=== PATIENT | male | born 2000 | race Caucasian/White ===

== ENCOUNTER 2021-06-05 15:36 | Inpatient (IN) | payer BC, OTHER ==
[2021-06-05] MEDS ORDERED: SODIUM CHLORIDE 0.9% 500 ML INFUS.BAG IV ONE ×3 (16:23→18:47)
[2021-06-05] MEDS ORDERED: ONDANSETRON 4 MG/2 ML VIAL IVPUSH ONE (16:28)
[2021-06-05] MEDS ORDERED: ACETAMINOPHEN 1000 MG/100 ML BAG IVPB ONE (16:28)
[2021-06-05] MEDS ORDERED: morphine CARPU-JECT 4 MG/1 ML DISP.SYRIN IVPUSH ONE (16:28)
[2021-06-05] MEDS ORDERED: FAMOTIDINE 20 MG/50 ML IVPB 20 MG/50 ML MG IVPB ONE ×2 (16:30→17:18)
[2021-06-05] MEDS ORDERED: morphine SULFATE 4 MG/ML VIAL ONE (16:36)
[2021-06-05] MEDS ORDERED: ONDANSETRON 4 MG/2 ML VIAL ONE (16:36)
[2021-06-05] MEDS ORDERED: ACETAMINOPHEN INJECTION 100 ML IVPB ONE (16:36)
[2021-06-05 17:13] LABS: ALBUMIN 3.3 g/dl (3.4-5.0); BILIRUBIN,TOTAL 3.3 mg/dl (0.2-1); CALCIUM 7.7 mg/dl (8.5-10); CREATININE 0.4 mg/dl (0.55-1.3); MAGNESIUM 2.1 mg/dL (1.8-2.4); TOT PROT 5.1 g/dl (6.4-8.2)
[2021-06-05] MEDS ORDERED: diazePAM CARPU-JECT 10 MG/2 ML DISP.SYRIN ONE ×3 (18:32→21:54)
[2021-06-05] MEDS ORDERED: FOLIC ACID INJECTION - 1 MG, THIAMINE HCL 100 MG, MULTIVIT INJECTION ADULT 10 ML in SOD... IVPB ONE (18:37)
[2021-06-05 18:39] LABS: INR 1.18 (0.83-1.09); PROTHROMBIN TIME (PATIENT) 13.6 SEC (9.7-13.0)
[2021-06-05] MEDS ORDERED: THIAMINE HCL 200 MG/2 ML VIAL ONE (18:46)
[2021-06-05] MEDS ORDERED: FOLIC ACID 5 MG/1 ML ONE (18:48)
[2021-06-05] MEDS ORDERED: LORazepam 2 MG/ML SDV VIAL IVPUSH ONE (18:48)
[2021-06-05] MEDS ORDERED: diazePAM CARPU-JECT 10 MG/2 ML DISP.SYRIN IVPUSH ONE ×3 (18:48→21:52)
[2021-06-05 18:49] LABS: BASO % 0.5 % (0-2.0); EOS % 0.1 % (0-4.5); HEMOGLOBIN 15.4 GM/dL (11.7-16.9); LYMPH % 20.1 % (8-40); MCH 38.3 pg (25.7-33.7); MCHC 37.6 g/dl (32.0-35.9); MEAN PLT VOLUME 10.2 fl (7.5-11.1); NEUT % 73.3 % (42.8-82.8); PLATELET COUNT 141 10^3/uL (134-434); RBC 4.02 M/mm3 (4.00-5.60); RDW 13.4 % (11.9-15.9); WHITE BLOOD COUNT 10.1 K/mm3 (4.0-10.0)
[2021-06-05 19:27] LABS: ANISOCYTOSIS 1+; MACROCYTOSIS 0; TOXIC GRANULATION 1+
[2021-06-05 19:30] LABS: LACTIC ACID 3.4 mmol/L (0.4-2.0)
[2021-06-05] MEDS ORDERED: KCL 10 MEQ IVPB 10 MEQ/100 ML INFUS.BAG IVPB SCH (19:30)
[2021-06-05] MEDS ORDERED: KCL 10 MEQ IVPB 10 MEQ/100 ML INFUS.BAG IVPB ONE (19:51)
[2021-06-05 20:43] LABS: CHOLESTEROL 596 mg/dl (50-200)
[2021-06-05 20:54] LABS: VENOUS BASE EXCESS -9.1 mmol/L (-2-2); VENOUS O2 SATURATION 89.2 % (70-80); VENOUS PCO2 33.1 mmHg (38-52); VENOUS PH 7.305 (7.310-7.410)
[2021-06-05 21:21] LABS: COCAINE, UR POSITIVE (NEGATIVE); METHADONE, UR NEGATIVE (NEGATIVE); OPIATES, URI POSITIVE (NEGATIVE); PHENCYCLIDINE,URINE NEGATIVE (NEGATIVE); URINE AMPHETAMINES NEGATIVE (NEGATIVE); URINE BARBITURATES NEGATIVE (NEGATIVE); URINE BENZODIAZEPINES NEGATIVE (NEGATIVE)
[2021-06-05 21:37] LABS: LDL CHOLESTEROL (ONLY DFH) -470 mg/dl (5-100)
[2021-06-05 21:38] LABS: HDL CHOLESTEROL 10 mg/dl (40-60)
[2021-06-05 21:39] LABS: TRIGLYCERIDES 5280 mg/dl (0-150)
[2021-06-05] MEDS ORDERED: INSULIN DRIP - PLEASE ORDER UNDER SETS NR ONE (23:11)
[2021-06-05] MEDS ORDERED: DEXTROSE 5%-NORMAL SALINE 1,000 ML IV SCH (23:15)
[2021-06-06 00:17] LABS: LACTIC ACID 3.1 mmol/L (0.4-2.0)
[2021-06-06] MEDS ORDERED: LIDOCAINE 5% TOPICAL PATCH TP ONE ×2 (01:03→08:28)
[2021-06-06 01:22] VITALS: BMI 27.8
[2021-06-06] MEDS: D5-NS + 20 MEQ KCL - 20 MEQ/1,000 ML INFUS.BAG IV SCH ×2 (01:36→07:51)
[2021-06-06 01:43] LABS: CHLORIDE 96 mmol/L (98-107); SODIUM 130 mmol/L (136-145)
[2021-06-06 01:49] LABS: ANION GAP 12 MMOL/L (8-16); CO2 22 mmol/L (21-32); CREATININE 0.8 mg/dL (0.55-1.3); GLUCOSE,RANDOM 183 mg/dL (74-106)
[2021-06-06 01:50] LABS: BLOOD UREA NITROGEN 9.7 mg/dL (7-18); CALCIUM 5.6 mg/dL (8.5-10.1)
[2021-06-06] MEDS ORDERED: INSULIN REGULAR HUMAN 100 UNITS/ML *VIAL* (FOR IVP) IVPUSH ONE (01:56)
[2021-06-06] MEDS ORDERED: DEXTROSE 50%-WATER - 25 GM/50 ML VIAL IVPUSH PRN ×2 (01:56→14:15)
[2021-06-06] MEDS ORDERED: INSULIN REGULAR 100 UNITS in SODIUM CHLORIDE 99 ML IVPB SCH ×2 (02:00→15:00)
[2021-06-06] MEDS: MUPIROCIN 2% TOPICAL OINTMENT FOR DECOLONIZATION NS SCH ×3 (02:40→21:01)
[2021-06-06] MEDS ORDERED: oxyCODONE HCL 5 MG TABLET PO ONE ×2 (02:52→22:33)
[2021-06-06] MEDS ORDERED: DEXTROSE 50%-WATER 25 GM/50 ML DISP.SYRIN ONE ×5 (04:10→14:16)
[2021-06-06] MEDS: DEXTROSE 50%-WATER - 25 GM/50 ML VIAL IVPUSH PRN ×2 (05:19→06:17)
[2021-06-06] MEDS ORDERED: LORazepam 2 MG/ML SDV VIAL IVPUSH ONE (06:13)
[2021-06-06 07:05] LABS: BASO % 0.4 % (0-2.0); EOS % 0.1 % (0-4.5); HEMATOCRIT 36.2 % (35.4-49); HEMOGLOBIN 12.5 GM/dL (11.7-16.9); LYMPH % 17.5 % (8-40); MCH 35.4 pg (25.7-33.7); MCHC 34.5 g/dl (32.0-35.9); MEAN CELL VOLUME 102.8 fl (80-96); MEAN PLT VOLUME 9.6 fl (7.5-11.1); MONO % 5.7 % (3.8-10.2); NEUT % 76.3 % (42.8-82.8); PLATELET COUNT 110 10^3/uL (134-434); RBC 3.52 M/mm3 (4.00-5.60); RDW 13.2 % (11.9-15.9); WHITE BLOOD COUNT 11.5 K/mm3 (4.0-10.0)
[2021-06-06 07:24] LABS: CHLORIDE 100 mmol/L (98-107); SODIUM 133 mmol/L (136-145)
[2021-06-06 07:26] LABS: ALBUMIN 2.3 g/dl (3.4-5.0)
[2021-06-06 07:27] LABS: ANION GAP 12 MMOL/L (8-16); CO2 21 mmol/L (21-32); GLUCOSE,RANDOM 94 mg/dL (74-106); MAGNESIUM 1.7 mg/dL (1.8-2.4)
[2021-06-06 07:29] LABS: CREATININE 0.9 mg/dL (0.55-1.3)
[2021-06-06 07:30] LABS: CHOLESTEROL 347 mg/dL (50-200)
[2021-06-06 07:31] LABS: BILIRUBIN,TOTAL 3.2 mg/dL (0.2-1); LDL CHOLESTEROL (ONLY SJRH) 186 mg/dL (5-100)
[2021-06-06 07:32] LABS: ALK PHOS 198 U/L (45-117)
[2021-06-06 07:33] LABS: HDL CHOLESTEROL 16 mg/dL (40-60)
[2021-06-06 07:44] LABS: TRIGLYCERIDES 2385 mg/dL (0-150)
[2021-06-06 07:54] LABS: CALCIUM 5.6 mg/dL (8.5-10.1); PHOSPHOROUS 1.1 mg/dL (2.5-4.9); SGOT/AST 492 U/L (15-37); TOT PROT 5.1 g/dl (6.4-8.2)
[2021-06-06] MEDS ORDERED: POTASSIUM CHLORIDE TABS 20 MEQ TABLET.ER (FP) PO ONE (08:10)
[2021-06-06] MEDS: KCL 10 MEQ IVPB 10 MEQ/100 ML INFUS.BAG IVPB SCH ×3 (08:15→10:15)
[2021-06-06] MEDS: THIAMINE HCL 200 MG/2 ML VIAL IVPB SCH (09:12)
[2021-06-06] MEDS ORDERED: MAGNESIUM 1GM/D5W - 1 GM/100 ML IVPB IVPB ONE (09:30)
[2021-06-06] MEDS ORDERED: POTASSIUM CHLORIDE TABS 20 MEQ TABLET.ER (FP) PO SCH ×2 (10:00)
[2021-06-06] MEDS ORDERED: ENOXAPARIN NA (PORCINE) 40 MG/0.4 ML DISP.SYRIN SQ SCH (10:00)
[2021-06-06] MEDS ORDERED: POTASSIUM PHOSPHATE 30 MM in DEXTROSE 5%-WATER - 250 ML IVPB ONE (10:00)
[2021-06-06 11:25] LABS: CHLORIDE 101 mmol/L (98-107); SODIUM 131 mmol/L (136-145)
[2021-06-06] MEDS: D5-LR+20 MEQ KCL - 20 MEQ/1,000 ML INFUS.BAG IV SCH ×4 (11:37→21:25)
[2021-06-06] MEDS: CALCIUM GLUCONATE IN NACL 1 GM/50 ML BAG IVPB SCH ×2 (11:40→13:19)
[2021-06-06 11:44] LABS: ALBUMIN 2.3 g/dl (3.4-5.0)
[2021-06-06 11:45] LABS: ANION GAP 8 MMOL/L (8-16); CO2 23 mmol/L (21-32); GLUCOSE,RANDOM 105 mg/dL (74-106)
[2021-06-06 11:46] LABS: BLOOD UREA NITROGEN 6.7 mg/dL (7-18)
[2021-06-06 11:50] LABS: CREATININE 0.7 mg/dL (0.55-1.3); SGOT/AST 437 U/L (15-37)
[2021-06-06 11:51] LABS: BILIRUBIN,TOTAL 3.4 mg/dL (0.2-1)
[2021-06-06 11:52] LABS: ALK PHOS 185 U/L (45-117)
[2021-06-06 12:18] LABS: CALCIUM 6.6 mg/dL (8.5-10.1); SGPT/ALT 235 U/L (13-61); TRIGLYCERIDES 1358 mg/dL (0-150)
[2021-06-06] MEDS ORDERED: DEXTROSE 50%-WATER 25 GM/50 ML DISP.SYRIN IVPUSH ONE (12:20)
[2021-06-06] MEDS ORDERED: LIDOCAINE PATCH REMOVAL MC SCH ×3 (13:00→22:00)
[2021-06-06 13:36] LABS: PHOSPHOROUS 1.1 mg/dL (2.5-4.9)
[2021-06-06] MEDS: LIDOCAINE 5% TOPICAL PATCH TP SCH (14:22)
[2021-06-06] MEDS: ACETAMINOPHEN 1000 MG/100 ML BAG IVPB SCH ×2 (14:59→20:36)
[2021-06-06 16:21] LABS: ALBUMIN 2.2 g/dl (3.4-5.0); BLOOD UREA NITROGEN 4.2 mg/dL (7-18)
[2021-06-06 16:24] LABS: CREATININE 0.7 mg/dL (0.55-1.3)
[2021-06-06 16:25] LABS: TOT PROT 4.8 g/dl (6.4-8.2)
[2021-06-06 16:34] LABS: CALCIUM 7.1 mg/dL (8.5-10.1)
[2021-06-06] MEDS ORDERED: LORazepam 2 MG/ML SDV VIAL IVPUSH PRN ×2 (18:50→20:04)
[2021-06-06 21:29] LABS: CALCIUM 7.4 mg/dL (8.5-10.1)
[2021-06-06 21:30] LABS: ALBUMIN 2.2 g/dl (3.4-5.0)
[2021-06-06 21:33] LABS: CREATININE 0.7 mg/dL (0.55-1.3)
[2021-06-06 21:34] LABS: TOT PROT 4.8 g/dl (6.4-8.2)
[2021-06-06] MEDS ORDERED: CHLORHEXIDINE GLUCONATE 4% CLEANSER FOR DECOLONIZATION TP SCH (22:00)
[2021-06-06] MEDS ORDERED: diazePAM CARPU-JECT 10 MG/2 ML DISP.SYRIN IVPUSH ONE (23:24)
[2021-06-07] MEDS ORDERED: chlordiazePOXIDE HCL 25 MG CAPSULE PO PRN (00:18)
[2021-06-07] MEDS: ACETAMINOPHEN 1000 MG/100 ML BAG IVPB SCH ×4 (02:21→22:01)
[2021-06-07 02:24] LABS: CHLORIDE 106 mmol/L (98-107); SODIUM 137 mmol/L (136-145)
[2021-06-07 02:26] LABS: CALCIUM 7.4 mg/dL (8.5-10.1)
[2021-06-07 02:27] LABS: ALBUMIN 2.2 g/dl (3.4-5.0); ANION GAP 6 MMOL/L (8-16); CO2 24 mmol/L (21-32); GLUCOSE,RANDOM 85 mg/dL (74-106)
[2021-06-07 02:30] LABS: SGOT/AST 384 U/L (15-37); SGPT/ALT 212 U/L (13-61); TRIGLYCERIDES 387 mg/dL (0-150)
[2021-06-07 02:32] LABS: BILIRUBIN,TOTAL 4.5 mg/dL (0.2-1); TOT PROT 4.7 g/dl (6.4-8.2)
[2021-06-07 02:33] LABS: ALK PHOS 174 U/L (45-117)
[2021-06-07 02:51] LABS: CREATININE 0.7 mg/dL (0.55-1.3)
[2021-06-07] MEDS ORDERED: chlordiazePOXIDE HCL 25 MG CAPSULE PO SCH (05:00)
[2021-06-07 06:52] LABS: BASO % 0.6 % (0-2.0); EOS % 0.9 % (0-4.5); HEMATOCRIT 34.6 % (35.4-49); HEMOGLOBIN 11.6 GM/dL (11.7-16.9); LYMPH % 13.3 % (8-40); MCH 34.4 pg (25.7-33.7); MCHC 33.6 g/dl (32.0-35.9); MEAN CELL VOLUME 102.3 fl (80-96); MEAN PLT VOLUME 10.7 fl (7.5-11.1); MONO % 7.3 % (3.8-10.2); NEUT % 77.9 % (42.8-82.8); PLATELET COUNT 94 10^3/uL (134-434); RBC 3.38 M/mm3 (4.00-5.60); RDW 12.8 % (11.9-15.9); WHITE BLOOD COUNT 8.8 K/mm3 (4.0-10.0)
[2021-06-07] MEDS ORDERED: LORazepam 1 MG TABLET PO PRN ×2 (07:18→20:48)
[2021-06-07 07:19] LABS: CHLORIDE 106 mmol/L (98-107); SODIUM 136 mmol/L (136-145)
[2021-06-07 07:26] LABS: ALBUMIN 2.2 g/dl (3.4-5.0); CREATININE 0.6 mg/dL (0.55-1.3); PHOSPHOROUS 1.3 mg/dL (2.5-4.9)
[2021-06-07 07:27] LABS: GLUCOSE,RANDOM 116 mg/dL (74-106)
[2021-06-07 07:28] LABS: BILIRUBIN,TOTAL 4.3 mg/dL (0.2-1); TOT PROT 4.7 g/dl (6.4-8.2)
[2021-06-07 07:29] LABS: ALK PHOS 165 U/L (45-117)
[2021-06-07 07:30] LABS: SGOT/AST 346 U/L (15-37); SGPT/ALT 201 U/L (13-61)
[2021-06-07] MEDS ORDERED: SODIUM CHLORIDE 1,000 ML IV SCH (07:30)
[2021-06-07 07:31] LABS: ANION GAP 6 MMOL/L (8-16); CO2 25 mmol/L (21-32); MAGNESIUM 1.7 mg/dL (1.8-2.4)
[2021-06-07] MEDS ORDERED: SODIUM PHOSPHATE - 0 MM in DEXTROSE 5%-WATER - 250 ML IVPB ONE (07:37)
[2021-06-07] MEDS ORDERED: MAGNESIUM SULF 50% (8.12 MEQ/2 ML-1 GM VIAL) IVPB ONE (07:39)
[2021-06-07 07:57] LABS: BLOOD UREA NITROGEN 1.8 mg/dL (7-18); CALCIUM 7.4 mg/dL (8.5-10.1)
[2021-06-07 07:59] LABS: BILIRUBIN,DIRECT 3.6 mg/dL (0.0-0.2)
[2021-06-07 08:02] LABS: BILIRUBIN,TOTAL 4.4 mg/dL (0.2-1)
[2021-06-07] MEDS ORDERED: POTASSIUM PHOSPHATE 30 MM in DEXTROSE 5%-WATER - 250 ML IVPB ONE (08:30)
[2021-06-07] MEDS: LIDOCAINE 5% TOPICAL PATCH TP SCH (09:16)
[2021-06-07] MEDS: THIAMINE HCL 200 MG/2 ML VIAL IVPB SCH (09:16)
[2021-06-07] MEDS: MUPIROCIN 2% TOPICAL OINTMENT FOR DECOLONIZATION NS SCH ×2 (09:39→21:49)
[2021-06-07] MEDS ORDERED: LACTATED RINGERS SOLUTION 1,000 ML/1,000 ML INFUS.BAG IV SCH (09:45)
[2021-06-07] MEDS ORDERED: POTASSIUM CHLORIDE TABS 20 MEQ TABLET.ER (FP) PO SCH (10:00)
[2021-06-07] MEDS ORDERED: LORazepam 2 MG TABLET PO SCH (11:00)
[2021-06-07] MEDS ORDERED: LORazepam 1 MG TABLET PO SCH (12:21)
[2021-06-07] MEDS ORDERED: DEXAMETHASONE SOD PHOSPHATE 10 MG/1 ML VIAL ONE (13:57)
[2021-06-07] MEDS ORDERED: ROPIVACAINE HCL 0.5% 30ML VIAL ONE (13:57)
[2021-06-07] MEDS ORDERED: LIDOCAINE HCL/PF 2% SDV 5ML VIAL ONE (14:48)
[2021-06-07] MEDS ORDERED: MIDAZOLAM HCL 2 MG/2 ML SINGLE DOSE VIAL ONE ×7 (14:48→18:48)
[2021-06-07] MEDS ORDERED: PROPOFOL 20 ML ONE ×4 (14:48→18:43)
[2021-06-07] MEDS ORDERED: ROCURONIUM BROMIDE 100 MG/10 ML VIAL ONE (16:04)
[2021-06-07] MEDS ORDERED: ceFAZolin SODIUM 1 GM VIAL IVPB ONE (16:08)
[2021-06-07] MEDS ORDERED: VANCOMYCIN 1,000 MG VIAL (RESTRICTED TO ID ONLY) ONE (16:09)
[2021-06-07] MEDS ORDERED: ceFAZolin SODIUM 1 GM VIAL ONE (16:09)
[2021-06-07] MEDS ORDERED: DEXMEDETOMIDINE HCL 200 MCG/2 ML IVPB ONE (16:25)
[2021-06-07] MEDS ORDERED: HYDROmorphone HCl 2 MG/ML VIAL ONE (16:31)
[2021-06-07] MEDS ORDERED: TRANEXAMIC ACID 1000 MG/10 ML VIAL ONE (16:44)
[2021-06-07] MEDS ORDERED: ONDANSETRON 4 MG/2 ML VIAL IVPUSH PRN ×2 (16:44→20:48)
[2021-06-07] MEDS ORDERED: LACTATED RINGERS SOLUTION 1,000 ML IV SCH ×2 (16:45→20:48)
[2021-06-07] MEDS ORDERED: TRANEXAMIC ACID 1000 MG/10 ML VIAL IVPB ONE (16:45)
[2021-06-07] MEDS ORDERED: METOPROLOL TARTRATE 5 MG/5 ML VIAL ONE (17:05)
[2021-06-07] MEDS ORDERED: DEXAMETHASONE SOD PHOSPHATE 4 MG/1 ML VIAL ONE (17:06)
[2021-06-07] MEDS ORDERED: VANCOMYCIN 1,000 MG VIAL (RESTRICTED TO ID ONLY) IVPB ONE (18:15)
[2021-06-07] MEDS ORDERED: VANCOMYCIN 1 GM in D5W (PRE-DOCKED) 1,000 MG/250 ML IVPB ONE (20:05)
[2021-06-07] MEDS ORDERED: LORazepam 2 MG/ML SDV VIAL IVPUSH ONE (20:47)
[2021-06-07] MEDS ORDERED: diazePAM CARPU-JECT 10 MG/2 ML DISP.SYRIN IVPUSH ONE (21:13)
[2021-06-07] MEDS ORDERED: CHLORHEXIDINE GLUCONATE 4% CLEANSER FOR DECOLONIZATION TP SCH ×2 (22:00)
[2021-06-07] MEDS ORDERED: LIDOCAINE PATCH REMOVAL MC SCH (22:00)
[2021-06-07] MEDS ORDERED: MUPIROCIN 2% TOPICAL OINTMENT FOR DECOLONIZATION NS SCH (22:00)
[2021-06-07] MEDS: LORazepam 1 MG TABLET PO SCH (23:31)
[2021-06-07] MEDS: CEFAZOLIN 2 GM in DEXTROSE 5%-WATER - 100 ML IVPB SCH (23:34)
[2021-06-08] MEDS ORDERED: ceFAZolin 2 GRAM PREMIX BAG IVPB SCH
[2021-06-08] MEDS ORDERED: CEFAZOLIN 2 GM in DEXTROSE 5%-WATER - 100 ML IVPB SCH ×2 (00:08→16:00)
[2021-06-08] MEDS ORDERED: VANCOMYCIN 1 GM in D5W (PRE-DOCKED) 1,000 MG/250 ML IVPB ONE (03:30)
[2021-06-08] MEDS ORDERED: chlordiazePOXIDE HCL 25 MG CAPSULE PO SCH (05:00)
[2021-06-08] MEDS: LORazepam 1 MG TABLET PO SCH ×4 (05:19→23:00)
[2021-06-08 07:19] LABS: INR 1.24 (0.83-1.09); PROTHROMBIN TIME (PATIENT) 14.3 SEC (9.7-13.0)
[2021-06-08 07:26] LABS: HEMATOCRIT 26.8 % (35.4-49); HEMOGLOBIN 9.3 GM/dL (11.7-16.9); MCH 35.2 pg (25.7-33.7); MCHC 34.5 g/dl (32.0-35.9); MEAN CELL VOLUME 101.9 fl (80-96); MEAN PLT VOLUME 10.3 fl (7.5-11.1); PLATELET COUNT 105 10^3/uL (134-434); RBC 2.63 M/mm3 (4.00-5.60); RDW 13.2 % (11.9-15.9); WHITE BLOOD COUNT 12.1 K/mm3 (4.0-10.0)
[2021-06-08 07:49] LABS: CALCIUM 7.8 mg/dL (8.5-10.1)
[2021-06-08 07:50] LABS: ALBUMIN 2.3 g/dl (3.4-5.0); BLOOD UREA NITROGEN 12.4 mg/dL (7-18)
[2021-06-08 07:51] LABS: ALBUMIN 2.2 g/dl (3.4-5.0)
[2021-06-08 07:53] LABS: BILIRUBIN,TOTAL 5.2 mg/dL (0.2-1); CREATININE 1.6 mg/dL (0.55-1.3); TOT PROT 5.1 g/dl (6.4-8.2)
[2021-06-08 07:55] LABS: BILIRUBIN,DIRECT 4.1 mg/dL (0.0-0.2); BILIRUBIN,TOTAL 4.8 mg/dL (0.2-1); TOT PROT 4.9 g/dl (6.4-8.2)
[2021-06-08] MEDS: CEFAZOLIN 2 GM in DEXTROSE 5%-WATER - 100 ML IVPB SCH ×2 (09:43→17:10)
[2021-06-08] MEDS ORDERED: LACTULOSE 20 GM/30 ML UDC (FOR ORAL USE ONLY) PO SCH ×2 (10:00)
[2021-06-08] MEDS ORDERED: THIAMINE HCL 200 MG/2 ML VIAL IVPB SCH (10:00)
[2021-06-08] MEDS ORDERED: ENOXAPARIN NA (PORCINE) 40 MG/0.4 ML DISP.SYRIN SQ SCH (10:00)
[2021-06-08] MEDS ORDERED: PANTOPRAZOLE 20 MG TABLET PO SCH ×2 (10:00)
[2021-06-08] MEDS ORDERED: POTASSIUM CHLORIDE TABS 20 MEQ TABLET.ER (FP) PO SCH (10:00)
[2021-06-08 10:03] LABS: MAGNESIUM 2.2 mg/dL (1.8-2.4)
[2021-06-08 10:07] LABS: PHOSPHOROUS 3.6 mg/dL (2.5-4.9)
[2021-06-08 10:58] LABS: ANISOCYTOSIS 2+; MACROCYTOSIS 2+; OVALOCYTE 2+
[2021-06-08 12:34] LABS: HIV INTERPRETATION NEGATIVE (NEGATIVE)
[2021-06-08] MEDS: MUPIROCIN 2% TOPICAL OINTMENT FOR DECOLONIZATION NS SCH (15:59)
[2021-06-08] MEDS ORDERED: LORazepam 1 MG TABLET PO PRN (16:00)
[2021-06-08] MEDS: GEMFIBROZIL 600 MG TABLET (FP) PO SCH (17:12)
[2021-06-08] MEDS ORDERED: SMOFLIPID - FAT EMUL/SOY/MCT/OLIV/FISH OIL 250 ML EMULSION IV SCH (22:00)
[2021-06-08] MEDS ORDERED: LIDOCAINE PATCH REMOVAL MC SCH (22:00)
[2021-06-08] MEDS ORDERED: MUPIROCIN 2% TOPICAL OINTMENT FOR DECOLONIZATION NS SCH (22:00)
[2021-06-08] MEDS ORDERED: CHLORHEXIDINE GLUCONATE 4% CLEANSER FOR DECOLONIZATION TP SCH (22:00)
[2021-06-08] MEDS ORDERED: FAT EMUL/SOY/MCT/OLIV/FISH OIL 250 ML IV SCH (22:00)
[2021-06-08] MEDS: OMEGA-3 ACID ETHYL ESTERS (FATTY-ACIDS) 1 GM CAPSULE (FP) PO SCH (23:00)
[2021-06-09] MEDS ORDERED: chlordiazePOXIDE HCL 10 MG CAPSULE PO PRN
[2021-06-09] MEDS ORDERED: CEFAZOLIN 2 GM in DEXTROSE 5%-WATER - 50 ML IVPB SCH (00:08)
[2021-06-09] MEDS: LACTATED RINGERS SOLUTION 1,000 ML/1,000 ML INFUS.BAG IV SCH (03:08)
[2021-06-09 04:29] LABS: EPI CELLS 3 /uL (0-25.1); HYALINE CASTS 0 /uL (0-3.1); URINE APPEARANCE CLEAR; URINE BACTERIA 1 /uL (0-1359); URINE BILIRUBIN 1+ (NEGATIVE); URINE COLOR DK YELLOW; URINE GLUCOSE (UA) NEGATIVE (NEGATIVE); URINE KETONE NEGATIVE (NEGATIVE); URINE LEUK ESTERASE NEGATIVE (NEGATIVE); URINE NITRITE NEGATIVE (NEGATIVE); URINE PROTEIN 1+ (NEGATIVE); URINE RBC 6 /uL (0-23.9); URINE WBC 3 /uL (0-25.8)
[2021-06-09] MEDS ORDERED: chlordiazePOXIDE HCL 10 MG CAPSULE PO SCH (05:00)
[2021-06-09] MEDS ORDERED: LORazepam 1 MG TABLET PO SCH ×2 (05:00)
[2021-06-09] MEDS: LORazepam 1 MG TABLET PO SCH ×4 (05:46→23:55)
[2021-06-09] MEDS ORDERED: GEMFIBROZIL 600 MG TABLET (FP) PO SCH (07:00)
[2021-06-09] MEDS: GEMFIBROZIL 600 MG TABLET (FP) PO SCH ×2 (08:23→17:08)
[2021-06-09] MEDS ORDERED: oxyCODONE HCL 5 MG TABLET PO ONE (09:00)
[2021-06-09 09:24] LABS: HEMATOCRIT 27.6 % (35.4-49); HEMOGLOBIN 9.3 GM/dL (11.7-16.9); MCH 34.3 pg (25.7-33.7); MCHC 33.8 g/dl (32.0-35.9); MEAN CELL VOLUME 101.4 fl (80-96); MEAN PLT VOLUME 9.9 fl (7.5-11.1); PLATELET COUNT 107 10^3/uL (134-434); RBC 2.72 M/mm3 (4.00-5.60); RDW 13.1 % (11.9-15.9); WHITE BLOOD COUNT 12.5 K/mm3 (4.0-10.0)
[2021-06-09 09:31] LABS: INR 1.11 (0.83-1.09); PROTHROMBIN TIME (PATIENT) 12.8 SEC (9.7-13.0)
[2021-06-09] MEDS ORDERED: VANCOMYCIN 1 GM in D5W (PRE-DOCKED) 1,000 MG/250 ML IVPB ONE (09:49)
[2021-06-09 09:54] LABS: ALBUMIN 2.1 g/dl (3.4-5.0); MAGNESIUM 1.9 mg/dL (1.8-2.4)
[2021-06-09 09:57] LABS: BLOOD UREA NITROGEN 21.8 mg/dL (7-18); CALCIUM 7.9 mg/dL (8.5-10.1); PHOSPHOROUS 1.6 mg/dL (2.5-4.9)
[2021-06-09 09:58] LABS: BILIRUBIN,TOTAL 2.5 mg/dL (0.2-1); TOT PROT 4.9 g/dl (6.4-8.2)
[2021-06-09] MEDS ORDERED: VANCOMYCIN/WATER FOR INJ (PEG) 1,000 MG/200 ML BAG IVPB ONE (10:15)
[2021-06-09 10:28] LABS: ANISOCYTOSIS 1+; MACROCYTOSIS 1+; OVALOCYTE 1+
[2021-06-09] MEDS: LACTULOSE 20 GM/30 ML UDC (FOR ORAL USE ONLY) PO SCH (11:23)
[2021-06-09] MEDS: PANTOPRAZOLE 20 MG TABLET PO SCH (11:24)
[2021-06-09] MEDS: POTASSIUM CHLORIDE TABS 20 MEQ TABLET.ER (FP) PO SCH (11:24)
[2021-06-09] MEDS: THIAMINE HCL 200 MG/2 ML VIAL IVPB SCH (11:25)
[2021-06-09] MEDS: OMEGA-3 ACID ETHYL ESTERS (FATTY-ACIDS) 1 GM CAPSULE (FP) PO SCH ×2 (11:29→23:53)
[2021-06-09] MEDS ORDERED: ACETAMINOPHEN 500 MG TABLET (FP) PO ONE (12:15)
[2021-06-09] MEDS ORDERED: DEXTROSE 5%-WATER - 50 ML IVPB ONE (12:19)
[2021-06-09] MEDS ORDERED: PIPERACILLIN/TAZOBACTAM 3.375 GM VIAL IVPB ONE (12:19)
[2021-06-09] MEDS ORDERED: ALBUTEROL SO4 0.042% IH SOL 1.25 MG/3 ML VIAL.NEB NEB ONE (13:00)
[2021-06-09 13:01] LABS: CREATININE, URINE RANDOM 42.9 mg/dL (30-150)
[2021-06-09 16:03] LABS: URINE UREA NITROGEN 290 MG/DL (350-1000)
[2021-06-09] MEDS: PIPERACILLIN/TAZOB 3.375 GM 3.375 GM in DEXTROSE 5%-WATER - 50 ML IVPB SCH ×2 (17:02→18:30)
[2021-06-09] MEDS: oxyCODONE HCL 5 MG TABLET PO PRN (20:01)
[2021-06-10] MEDS ORDERED: LORazepam 0.5 MG TABLET PO PRN ×3
[2021-06-10] MEDS: oxyCODONE HCL 5 MG TABLET PO PRN ×3 (03:32→21:15)
[2021-06-10] MEDS ORDERED: PIPERACILLIN/TAZOBACTAM 3.375 GM VIAL IVPB ONE (03:35)
[2021-06-10] MEDS ORDERED: DEXTROSE 5%-WATER - 50 ML IVPB ONE (03:35)
[2021-06-10] MEDS: PIPERACILLIN/TAZOB 3.375 GM 3.375 GM in DEXTROSE 5%-WATER - 50 ML IVPB SCH ×3 (03:37→14:37)
[2021-06-10] MEDS: ACETAMINOPHEN 325 MG TABLET (FP) PO PRN ×2 (03:53→09:54)
[2021-06-10] MEDS: LACTATED RINGERS SOLUTION 1,000 ML/1,000 ML INFUS.BAG IV SCH ×5 (03:56→18:32)
[2021-06-10] MEDS ORDERED: LORazepam 0.5 MG TABLET PO SCH ×2 (05:00)
[2021-06-10] MEDS ORDERED: chlordiazePOXIDE HCL 10 MG CAPSULE PO SCH (05:00)
[2021-06-10] MEDS: LORazepam 0.5 MG TABLET PO SCH ×4 (05:42→23:27)
[2021-06-10 08:38] LABS: HEMATOCRIT 25.2 % (35.4-49); HEMOGLOBIN 8.6 GM/dL (11.7-16.9); MCH 34.5 pg (25.7-33.7); MCHC 34.2 g/dl (32.0-35.9); MEAN PLT VOLUME 9.8 fl (7.5-11.1); PLATELET COUNT 108 10^3/uL (134-434); RDW 12.8 % (11.9-15.9); WHITE BLOOD COUNT 13.8 K/mm3 (4.0-10.0)
[2021-06-10 08:39] LABS: INR 1.17 (0.83-1.09); PROTHROMBIN TIME (PATIENT) 13.5 SEC (9.7-13.0)
[2021-06-10] MEDS: GEMFIBROZIL 600 MG TABLET (FP) PO SCH ×2 (08:40→19:06)
[2021-06-10 08:59] LABS: ALBUMIN 1.9 g/dl (3.4-5.0); BLOOD UREA NITROGEN 20.1 mg/dL (7-18)
[2021-06-10 09:02] LABS: CREATININE 2.1 mg/dL (0.55-1.3)
[2021-06-10 09:03] LABS: BILIRUBIN,DIRECT 1.5 mg/dL (0.0-0.2)
[2021-06-10] MEDS: THIAMINE HCL 200 MG/2 ML VIAL IVPB SCH (09:51)
[2021-06-10] MEDS: LACTULOSE 20 GM/30 ML UDC (FOR ORAL USE ONLY) PO SCH (09:51)
[2021-06-10] MEDS: POTASSIUM CHLORIDE TABS 20 MEQ TABLET.ER (FP) PO SCH (09:52)
[2021-06-10] MEDS: PANTOPRAZOLE 20 MG TABLET PO SCH (09:55)
[2021-06-10] MEDS: OMEGA-3 ACID ETHYL ESTERS (FATTY-ACIDS) 1 GM CAPSULE (FP) PO SCH ×2 (09:55→21:37)
[2021-06-10 10:49] LABS: ANISOCYTOSIS 1+; MACROCYTOSIS 1+
[2021-06-10] MEDS ORDERED: MEROPENEM 500 MG VIAL (RESTRICTED TO ID) IVPB ONE ×2 (14:13→17:25)
[2021-06-10] MEDS ORDERED: DEXTROSE 5%-WATER 100 ML IVPB ONE ×2 (14:13→17:26)
[2021-06-10] MEDS ORDERED: oxyCODONE HCL 5 MG TABLET PO ONE (14:23)
[2021-06-10] MEDS: MEROPENEM 500 MG in DEXTROSE 5%-WATER 100 ML IVPB SCH ×2 (14:27→18:32)
[2021-06-11] MEDS ORDERED: MEROPENEM 500 MG VIAL (RESTRICTED TO ID) IVPB ONE ×3 (01:01→16:26)
[2021-06-11] MEDS: MEROPENEM 500 MG in DEXTROSE 5%-WATER 100 ML IVPB SCH ×3 (01:01→17:59)
[2021-06-11] MEDS ORDERED: DEXTROSE 5%-WATER 100 ML IVPB ONE ×3 (01:01→16:26)
[2021-06-11] MEDS: oxyCODONE HCL 5 MG TABLET PO PRN ×3 (03:50→18:01)
[2021-06-11] MEDS ORDERED: LORazepam 0.5 MG TABLET PO ONE ×3 (05:00)
[2021-06-11] MEDS ORDERED: chlordiazePOXIDE HCL 10 MG CAPSULE PO ONE ×2 (05:00)
[2021-06-11] MEDS: GEMFIBROZIL 600 MG TABLET (FP) PO SCH ×2 (08:23→16:32)
[2021-06-11] MEDS: ACETAMINOPHEN 325 MG TABLET (FP) PO PRN (08:23)
[2021-06-11] MEDS ORDERED: MELATONIN 5 MG TABLETS PO ONE (08:38)
[2021-06-11 08:46] LABS: INR 1.15 (0.83-1.09); PROTHROMBIN TIME (PATIENT) 13.3 SEC (9.7-13.0)
[2021-06-11 08:48] LABS: CALCIUM 8.4 mg/dL (8.5-10.1)
[2021-06-11 08:49] LABS: BLOOD UREA NITROGEN 16.3 mg/dL (7-18)
[2021-06-11 08:52] LABS: BILIRUBIN,DIRECT 1.1 mg/dL (0.0-0.2)
[2021-06-11 08:53] LABS: BILIRUBIN,TOTAL 1.5 mg/dL (0.2-1); CREATININE 1.9 mg/dL (0.55-1.3); TOT PROT 5.3 g/dl (6.4-8.2)
[2021-06-11 08:57] LABS: BASO % 0.5 % (0-2.0); EOS % 0.6 % (0-4.5); HEMATOCRIT 25.3 % (35.4-49); HEMOGLOBIN 8.6 GM/dL (11.7-16.9); LYMPH % 12.3 % (8-40); MCH 34.3 pg (25.7-33.7); MCHC 33.9 g/dl (32.0-35.9); MEAN CELL VOLUME 101.4 fl (80-96); MEAN PLT VOLUME 10.1 fl (7.5-11.1); MONO % 16.6 % (3.8-10.2); PLATELET COUNT 137 10^3/uL (134-434); RDW 12.9 % (11.9-15.9); WHITE BLOOD COUNT 15.5 K/mm3 (4.0-10.0)
[2021-06-11] MEDS: PANTOPRAZOLE 20 MG TABLET PO SCH (09:21)
[2021-06-11] MEDS: POTASSIUM CHLORIDE TABS 20 MEQ TABLET.ER (FP) PO SCH (09:21)
[2021-06-11] MEDS: LORazepam 0.5 MG TABLET PO PRN ×2 (09:22→16:32)
[2021-06-11] MEDS: LACTULOSE 20 GM/30 ML UDC (FOR ORAL USE ONLY) PO SCH (09:22)
[2021-06-11] MEDS: OMEGA-3 ACID ETHYL ESTERS (FATTY-ACIDS) 1 GM CAPSULE (FP) PO SCH ×2 (09:22→21:26)
[2021-06-11] MEDS: THIAMINE HCL 200 MG/2 ML VIAL IVPB SCH (09:23)
[2021-06-11 10:08] LABS: HIV INTERPRETATION NEGATIVE (NEGATIVE)
[2021-06-11 11:16] LABS: ANISOCYTOSIS 0; MACROCYTOSIS 1+
[2021-06-11] MEDS: ENOXAPARIN NA (PORCINE) 100 MG/1 ML DISP.SYRIN SQ SCH ×2 (14:49→21:27)
[2021-06-11] MEDS ORDERED: CALCIUM CARBONATE 650 MG TABLET PO ONE (15:24)
[2021-06-11] MEDS: LACTATED RINGERS SOLUTION 1,000 ML/1,000 ML INFUS.BAG IV SCH (18:00)
[2021-06-11] MEDS: traZODone HCL 50 MG TABLET (FP) PO SCH (21:27)
[2021-06-11] MEDS: SIMETHICONE 40 MG/0.6 ML BOTTLE PO PRN (21:28)
[2021-06-11] MEDS ORDERED: MELATONIN 5 MG TABLETS PO SCH (22:00)
[2021-06-12] MEDS: oxyCODONE HCL 5 MG TABLET PO PRN ×4 (00:08→16:29)
[2021-06-12] MEDS ORDERED: MEROPENEM 500 MG VIAL (RESTRICTED TO ID) IVPB ONE ×3 (00:50→16:46)
[2021-06-12] MEDS ORDERED: DEXTROSE 5%-WATER 100 ML IVPB ONE ×3 (00:51→16:46)
[2021-06-12] MEDS: MEROPENEM 500 MG in DEXTROSE 5%-WATER 100 ML IVPB SCH ×3 (01:06→17:22)
[2021-06-12] MEDS: LORazepam 0.5 MG TABLET PO PRN ×3 (04:01→23:27)
[2021-06-12] MEDS: PANTOPRAZOLE 20 MG TABLET PO SCH (09:15)
[2021-06-12] MEDS: ACETAMINOPHEN 325 MG TABLET (FP) PO PRN ×2 (09:15→16:29)
[2021-06-12] MEDS: THIAMINE HCL 200 MG/2 ML VIAL IVPB SCH (09:15)
[2021-06-12] MEDS: LACTULOSE 20 GM/30 ML UDC (FOR ORAL USE ONLY) PO SCH (09:15)
[2021-06-12] MEDS: GEMFIBROZIL 600 MG TABLET (FP) PO SCH ×2 (09:15→17:22)
[2021-06-12] MEDS: ENOXAPARIN NA (PORCINE) 100 MG/1 ML DISP.SYRIN SQ SCH ×2 (09:15→23:04)
[2021-06-12] MEDS: OMEGA-3 ACID ETHYL ESTERS (FATTY-ACIDS) 1 GM CAPSULE (FP) PO SCH ×2 (09:16→21:55)
[2021-06-12 09:40] LABS: HEMATOCRIT 23.6 % (35.4-49); HEMOGLOBIN 7.9 GM/dL (11.7-16.9); MCHC 33.6 g/dl (32.0-35.9); MEAN CELL VOLUME 101.1 fl (80-96); MEAN PLT VOLUME 9.9 fl (7.5-11.1); PLATELET COUNT 182 10^3/uL (134-434); RBC 2.33 M/mm3 (4.00-5.60); RDW 12.8 % (11.9-15.9); WHITE BLOOD COUNT 17.3 K/mm3 (4.0-10.0)
[2021-06-12 09:48] LABS: INR 1.17 (0.83-1.09); PROTHROMBIN TIME (PATIENT) 13.5 SEC (9.7-13.0)
[2021-06-12 10:03] LABS: ALBUMIN 1.9 g/dl (3.4-5.0); BLOOD UREA NITROGEN 16.8 mg/dL (7-18); CALCIUM 8.1 mg/dL (8.5-10.1)
[2021-06-12 10:06] LABS: BILIRUBIN,DIRECT 0.8 mg/dL (0.0-0.2)
[2021-06-12 10:07] LABS: TOT PROT 5.2 g/dl (6.4-8.2)
[2021-06-12 10:09] LABS: BILIRUBIN,TOTAL 1.2 mg/dL (0.2-1)
[2021-06-12 10:31] LABS: ANISOCYTOSIS 1+; MACROCYTOSIS 0; TOXIC GRANULATION 2+
[2021-06-12] MEDS: LACTATED RINGERS SOLUTION 1,000 ML/1,000 ML INFUS.BAG IV SCH ×2 (10:51→21:53)
[2021-06-12] MEDS ORDERED: LACTATED RINGERS SOLUTION 1000 ML INFUS.BAG IV ONE (11:00)
[2021-06-12] MEDS ORDERED: CALCIUM CARBONATE 650 MG TABLET PO ONE (16:09)
[2021-06-12] MEDS: SERTRALINE HCL 25 MG TABLET (FP) PO SCH (16:29)
[2021-06-12] MEDS: traZODone HCL 50 MG TABLET (FP) PO SCH (21:54)
[2021-06-12] MEDS: MELATONIN 5 MG TABLETS PO SCH (21:55)
[2021-06-12] MEDS: SIMETHICONE 40 MG/0.6 ML BOTTLE PO PRN (23:42)
[2021-06-13] MEDS ORDERED: DEXTROSE 5%-WATER 100 ML IVPB ONE ×3 (01:26→18:19)
[2021-06-13] MEDS ORDERED: MEROPENEM 500 MG VIAL (RESTRICTED TO ID) IVPB ONE ×3 (01:26→18:19)
[2021-06-13] MEDS: MEROPENEM 500 MG in DEXTROSE 5%-WATER 100 ML IVPB SCH ×3 (02:40→18:22)
[2021-06-13] MEDS: oxyCODONE HCL 5 MG TABLET PO PRN ×2 (02:41→08:45)
[2021-06-13] MEDS: LACTATED RINGERS SOLUTION 1,000 ML/1,000 ML INFUS.BAG IV SCH ×3 (06:42→16:24)
[2021-06-13] MEDS: GEMFIBROZIL 600 MG TABLET (FP) PO SCH ×2 (06:42→18:22)
[2021-06-13] MEDS: LORazepam 0.5 MG TABLET PO PRN (06:43)
[2021-06-13] MEDS: SIMETHICONE 40 MG/0.6 ML BOTTLE PO PRN ×2 (08:46→16:48)
[2021-06-13 10:09] LABS: ANTIGLOMERULAR BASEMENT MEN.AB 3 units (0-20)
[2021-06-13] MEDS: ENOXAPARIN NA (PORCINE) 100 MG/1 ML DISP.SYRIN SQ SCH ×3 (10:22→21:24)
[2021-06-13] MEDS: PANTOPRAZOLE 20 MG TABLET PO SCH (10:22)
[2021-06-13] MEDS: SERTRALINE HCL 25 MG TABLET (FP) PO SCH (10:22)
[2021-06-13] MEDS: OMEGA-3 ACID ETHYL ESTERS (FATTY-ACIDS) 1 GM CAPSULE (FP) PO SCH ×2 (10:22→21:26)
[2021-06-13] MEDS: LACTULOSE 20 GM/30 ML UDC (FOR ORAL USE ONLY) PO SCH (10:22)
[2021-06-13 11:04] LABS: HEMATOCRIT 21.5 % (35.4-49); HEMOGLOBIN 7.2 GM/dL (11.7-16.9); MCH 33.8 pg (25.7-33.7); MCHC 33.6 g/dl (32.0-35.9); MEAN CELL VOLUME 100.6 fl (80-96); MEAN PLT VOLUME 9.6 fl (7.5-11.1); PLATELET COUNT 209 10^3/uL (134-434); RBC 2.14 M/mm3 (4.00-5.60); RDW 12.7 % (11.9-15.9); WHITE BLOOD COUNT 20.1 K/mm3 (4.0-10.0)
[2021-06-13 11:21] LABS: CALCIUM 8.1 mg/dL (8.5-10.1)
[2021-06-13 11:22] LABS: ALBUMIN 1.9 g/dl (3.4-5.0); BLOOD UREA NITROGEN 14.5 mg/dL (7-18)
[2021-06-13 11:23] LABS: LIPASE 921 U/L (73-393)
[2021-06-13 11:24] LABS: AMYLASE 106 U/L (25-115)
[2021-06-13 11:26] LABS: CREATININE 1.7 mg/dL (0.55-1.3)
[2021-06-13 11:27] LABS: TOT PROT 5.1 g/dl (6.4-8.2)
[2021-06-13 11:40] LABS: ANISOCYTOSIS 0; MACROCYTOSIS 1+
[2021-06-13] MEDS: THIAMINE HCL 200 MG/2 ML VIAL IVPB SCH (12:01)
[2021-06-13 16:08] LABS: ATYPICAL pANCA <1:20 titer (Neg:<1:20); C-ANCA <1:20 titer (Neg:<1:20)
[2021-06-13] MEDS ORDERED: CALCIUM CARBONATE 650 MG TABLET PO PRN (17:25)
[2021-06-13] MEDS: PANTOPRAZOLE 40 MG TABLET PO SCH (21:24)
[2021-06-13] MEDS: MELATONIN 5 MG TABLETS PO SCH (21:24)
[2021-06-13] MEDS: traZODone HCL 50 MG TABLET (FP) PO SCH (21:24)
[2021-06-13] MEDS: CALCIUM CARBONATE 650 MG TABLET PO PRN (21:27)
[2021-06-13 21:38] LABS: HEMATOCRIT 22.5 % (35.4-49); HEMOGLOBIN 7.4 GM/dL (11.7-16.9); MCH 33.2 pg (25.7-33.7); MCHC 32.7 g/dl (32.0-35.9); MEAN CELL VOLUME 101.6 fl (80-96); MEAN PLT VOLUME 9.7 fl (7.5-11.1); PLATELET COUNT 240 10^3/uL (134-434); RBC 2.22 M/mm3 (4.00-5.60); WHITE BLOOD COUNT 20.7 K/mm3 (4.0-10.0)
[2021-06-13 23:02] LABS: ANISOCYTOSIS 1+; MACROCYTOSIS 1+
[2021-06-13] MEDS: ACETAMINOPHEN 1000 MG/100 ML BAG IVPB PRN (23:23)
[2021-06-14] MEDS: SIMETHICONE 40 MG/0.6 ML BOTTLE PO PRN ×3 (00:01→21:58)
[2021-06-14] MEDS ORDERED: MEROPENEM 500 MG VIAL (RESTRICTED TO ID) IVPB ONE ×3 (01:13→18:45)
[2021-06-14] MEDS ORDERED: DEXTROSE 5%-WATER 100 ML IVPB ONE ×3 (01:14→18:45)
[2021-06-14] MEDS: MEROPENEM 500 MG in DEXTROSE 5%-WATER 100 ML IVPB SCH ×3 (01:18→18:51)
[2021-06-14] MEDS: CALCIUM CARBONATE 650 MG TABLET PO PRN ×2 (02:33→10:02)
[2021-06-14] MEDS ORDERED: MAG HYDROX/AL HYDROX/SIMETH 30 ML UNIT-DOSE CUP PO ONE (03:17)
[2021-06-14] MEDS: LACTATED RINGERS SOLUTION 1,000 ML/1,000 ML INFUS.BAG IV SCH ×3 (04:07→15:40)
[2021-06-14] MEDS: ACETAMINOPHEN 1000 MG/100 ML BAG IVPB PRN ×3 (05:42→18:11)
[2021-06-14] MEDS: GEMFIBROZIL 600 MG TABLET (FP) PO SCH ×2 (06:38→16:55)
[2021-06-14] MEDS ORDERED: TRIMETHOBENZAMIDE HCL 300 MG CAPSULE PO PRN (07:46)
[2021-06-14] MEDS: LACTULOSE 20 GM/30 ML UDC (FOR ORAL USE ONLY) PO SCH (10:02)
[2021-06-14] MEDS: OMEGA-3 ACID ETHYL ESTERS (FATTY-ACIDS) 1 GM CAPSULE (FP) PO SCH ×2 (10:02→21:56)
[2021-06-14] MEDS: SERTRALINE HCL 25 MG TABLET (FP) PO SCH (10:02)
[2021-06-14] MEDS: LACTOBACILLUS ACIDOPHILUS 1 TABLET PO SCH (10:02)
[2021-06-14] MEDS: PANTOPRAZOLE 40 MG TABLET PO SCH ×2 (10:02→21:58)
[2021-06-14 10:22] LABS: HEMATOCRIT 23.1 % (35.4-49); HEMOGLOBIN 7.6 GM/dL (11.7-16.9); MCH 33.4 pg (25.7-33.7); MCHC 32.9 g/dl (32.0-35.9); MEAN CELL VOLUME 101.6 fl (80-96); MEAN PLT VOLUME 9.7 fl (7.5-11.1); PLATELET COUNT 274 10^3/uL (134-434); RBC 2.27 M/mm3 (4.00-5.60); RDW 12.8 % (11.9-15.9); WHITE BLOOD COUNT 22.5 K/mm3 (4.0-10.0)
[2021-06-14 10:26] LABS: INR 1.15 (0.83-1.09); PROTHROMBIN TIME (PATIENT) 13.3 SEC (9.7-13.0)
[2021-06-14 10:38] LABS: CHLORIDE 105 mmol/L (98-107); SODIUM 137 mmol/L (136-145)
[2021-06-14 10:40] LABS: ALBUMIN 2.2 g/dl (3.4-5.0); ANION GAP 8 MMOL/L (8-16); CALCIUM 8.4 mg/dL (8.5-10.1); CO2 24 mmol/L (21-32); GLUCOSE,RANDOM 93 mg/dL (74-106)
[2021-06-14 10:41] LABS: BLOOD UREA NITROGEN 12.1 mg/dL (7-18)
[2021-06-14 10:43] LABS: CREATININE 1.6 mg/dL (0.55-1.3); SGPT/ALT 39 U/L (13-61)
[2021-06-14 10:44] LABS: SGOT/AST 72 U/L (15-37)
[2021-06-14 10:45] LABS: BILIRUBIN,TOTAL 0.9 mg/dL (0.2-1); TOT PROT 5.6 g/dl (6.4-8.2)
[2021-06-14 10:46] LABS: ALK PHOS 105 U/L (45-117)
[2021-06-14 10:48] LABS: LDH 472 U/L (87-246)
[2021-06-14] MEDS ORDERED: LACTATED RINGERS SOLUTION 1,000 ML/1,000 ML INFUS.BAG IV SCH (10:55)
[2021-06-14 11:06] LABS: ANISOCYTOSIS 1+; MACROCYTOSIS 1+
[2021-06-14] MEDS ORDERED: VANCOMYCIN 1 GM in D5W (PRE-DOCKED) 1,000 MG/250 ML IVPB ONE (11:13)
[2021-06-14] MEDS: THIAMINE HCL 200 MG/2 ML VIAL IVPB SCH (11:30)
[2021-06-14] MEDS ORDERED: ALBUTEROL SO4 0.083% IH SOL 2.5 MG/3 ML VIAL.NEB. NEB PRN (11:51)
[2021-06-14] MEDS: ENOXAPARIN NA (PORCINE) 40 MG/0.4 ML DISP.SYRIN SQ SCH (12:21)
[2021-06-14] MEDS: ENOXAPARIN NA (PORCINE) 100 MG/1 ML DISP.SYRIN SQ SCH (12:50)
[2021-06-14] MEDS: MELATONIN 5 MG TABLETS PO SCH (21:55)
[2021-06-14] MEDS: traZODone HCL 50 MG TABLET (FP) PO SCH (21:56)
[2021-06-14 23:58] LABS: URINE APPEARANCE CLEAR; URINE BILIRUBIN NEGATIVE (NEGATIVE); URINE COLOR YELLOW; URINE GLUCOSE (UA) NEGATIVE (NEGATIVE); URINE KETONE NEGATIVE (NEGATIVE); URINE LEUK ESTERASE NEGATIVE (NEGATIVE); URINE NITRITE NEGATIVE (NEGATIVE); URINE PROTEIN NEGATIVE (NEGATIVE); URINE UROBILINOGEN 0.2 mg/dL (0.2-1.0)
[2021-06-15] MEDS ORDERED: DEXTROSE 5%-WATER 100 ML IVPB ONE ×3 (01:08→16:41)
[2021-06-15] MEDS ORDERED: MEROPENEM 500 MG VIAL (RESTRICTED TO ID) IVPB ONE ×3 (01:08→16:41)
[2021-06-15] MEDS: MEROPENEM 500 MG in DEXTROSE 5%-WATER 100 ML IVPB SCH ×3 (01:11→17:11)
[2021-06-15] MEDS: ACETAMINOPHEN 1000 MG/100 ML BAG IVPB PRN ×2 (03:55→14:41)
[2021-06-15] MEDS: LACTATED RINGERS SOLUTION 1,000 ML/1,000 ML INFUS.BAG IV SCH ×2 (05:09→16:14)
[2021-06-15] MEDS: GEMFIBROZIL 600 MG TABLET (FP) PO SCH ×2 (07:02→17:12)
[2021-06-15 08:34] LABS: BASO % 0.4 % (0-2.0); EOS % 0.5 % (0-4.5); HEMATOCRIT 23.2 % (35.4-49); HEMOGLOBIN 7.7 GM/dL (11.7-16.9); LYMPH % 8.6 % (8-40); MCH 33.7 pg (25.7-33.7); MCHC 33.4 g/dl (32.0-35.9); MEAN PLT VOLUME 9.3 fl (7.5-11.1); MONO % 7.6 % (3.8-10.2); NEUT % 82.9 % (42.8-82.8); PLATELET COUNT 319 10^3/uL (134-434); RDW 13.1 % (11.9-15.9); WHITE BLOOD COUNT 21.5 K/mm3 (4.0-10.0)
[2021-06-15 08:41] LABS: INR 1.18 (0.83-1.09); PROTHROMBIN TIME (PATIENT) 13.6 SEC (9.7-13.0)
[2021-06-15 08:53] LABS: CALCIUM 8.4 mg/dL (8.5-10.1)
[2021-06-15 08:54] LABS: ALBUMIN 2.1 g/dl (3.4-5.0); BLOOD UREA NITROGEN 9.9 mg/dL (7-18)
[2021-06-15 08:57] LABS: CREATININE 1.6 mg/dL (0.55-1.3)
[2021-06-15 08:58] LABS: TOT PROT 5.5 g/dl (6.4-8.2)
[2021-06-15] MEDS: ENOXAPARIN NA (PORCINE) 40 MG/0.4 ML DISP.SYRIN SQ SCH (10:42)
[2021-06-15] MEDS: OMEGA-3 ACID ETHYL ESTERS (FATTY-ACIDS) 1 GM CAPSULE (FP) PO SCH ×2 (10:42→23:47)
[2021-06-15] MEDS: SERTRALINE HCL 25 MG TABLET (FP) PO SCH (10:43)
[2021-06-15] MEDS: PANTOPRAZOLE 40 MG TABLET PO SCH ×2 (10:43→21:50)
[2021-06-15] MEDS: LACTOBACILLUS ACIDOPHILUS 1 TABLET PO SCH (10:43)
[2021-06-15 11:14] LABS: ANISOCYTOSIS 2+; MACROCYTOSIS 1+; TOXIC GRANULATION 1+
[2021-06-15] MEDS: THIAMINE HCL 200 MG/2 ML VIAL IVPB SCH (12:02)
[2021-06-15 13:08] LABS: CREATININE, UR 0.75 g/L (0.30-3.00)
[2021-06-15 15:45] LABS: EPI CELLS 4 /uL (0-25.1); HYALINE CASTS 1 /uL (0-3.1); URINE BACTERIA 1 /uL (0-1359); URINE RBC 4 /uL (0-23.9); URINE WBC 6 /uL (0-25.8)
[2021-06-15] MEDS: MAG HYDROX/AL HYDROX/SIMETH 30 ML UNIT-DOSE CUP PO PRN (20:45)
[2021-06-15] MEDS: SIMETHICONE 40 MG/0.6 ML BOTTLE PO PRN (21:52)
[2021-06-15] MEDS ORDERED: ACETAMINOPHEN 325 MG TABLET (FP) PO PRN (22:24)
[2021-06-15] MEDS: ACETAMINOPHEN 325 MG TABLET (FP) PO PRN (22:30)
[2021-06-15] MEDS: MELATONIN 5 MG TABLETS PO SCH (23:46)
[2021-06-15] MEDS: traZODone HCL 50 MG TABLET (FP) PO SCH (23:47)
[2021-06-16] MEDS ORDERED: DEXTROSE 5%-WATER 100 ML IVPB ONE ×3 (01:39→16:45)
[2021-06-16] MEDS ORDERED: MEROPENEM 500 MG VIAL (RESTRICTED TO ID) IVPB ONE ×3 (01:39→16:45)
[2021-06-16] MEDS: MEROPENEM 500 MG in DEXTROSE 5%-WATER 100 ML IVPB SCH ×3 (01:48→17:03)
[2021-06-16] MEDS: MAG HYDROX/AL HYDROX/SIMETH 30 ML UNIT-DOSE CUP PO PRN ×2 (03:23→22:20)
[2021-06-16] MEDS: GEMFIBROZIL 600 MG TABLET (FP) PO SCH ×2 (06:35→17:04)
[2021-06-16] MEDS: ACETAMINOPHEN 325 MG TABLET (FP) PO PRN (06:40)
[2021-06-16 08:18] LABS: BASO % 0.5 % (0-2.0); EOS % 0.6 % (0-4.5); HEMATOCRIT 21.8 % (35.4-49); HEMOGLOBIN 7.1 GM/dL (11.7-16.9); MCH 33.3 pg (25.7-33.7); MCHC 32.5 g/dl (32.0-35.9); MEAN CELL VOLUME 102.4 fl (80-96); MEAN PLT VOLUME 9.5 fl (7.5-11.1); MONO % 6.9 % (3.8-10.2); PLATELET COUNT 346 10^3/uL (134-434); RBC 2.13 M/mm3 (4.00-5.60); WHITE BLOOD COUNT 18.9 K/mm3 (4.0-10.0)
[2021-06-16 08:37] LABS: ALBUMIN 2.2 g/dl (3.4-5.0); CALCIUM 8.6 mg/dL (8.5-10.1)
[2021-06-16 08:40] LABS: CREATININE 1.3 mg/dL (0.55-1.3)
[2021-06-16 08:42] LABS: BILIRUBIN,TOTAL 0.8 mg/dL (0.2-1); TOT PROT 5.6 g/dl (6.4-8.2)
[2021-06-16] MEDS: PANTOPRAZOLE 40 MG TABLET PO SCH ×2 (09:34→22:20)
[2021-06-16] MEDS: ENOXAPARIN NA (PORCINE) 40 MG/0.4 ML DISP.SYRIN SQ SCH (09:34)
[2021-06-16] MEDS: OMEGA-3 ACID ETHYL ESTERS (FATTY-ACIDS) 1 GM CAPSULE (FP) PO SCH ×2 (09:34→22:23)
[2021-06-16] MEDS: SERTRALINE HCL 25 MG TABLET (FP) PO SCH (09:34)
[2021-06-16] MEDS: LACTOBACILLUS ACIDOPHILUS 1 TABLET PO SCH (09:34)
[2021-06-16] MEDS: THIAMINE HCL 200 MG/2 ML VIAL IVPB SCH (11:26)
[2021-06-16] MEDS: ACETAMINOPHEN 1000 MG/100 ML BAG IVPB PRN ×2 (11:56→18:39)
[2021-06-16] MEDS: LACTATED RINGERS SOLUTION 1,000 ML/1,000 ML INFUS.BAG IV SCH (17:04)
[2021-06-16] MEDS: SIMETHICONE 40 MG/0.6 ML BOTTLE PO PRN (17:05)
[2021-06-16] MEDS: traZODone HCL 50 MG TABLET (FP) PO SCH (22:21)
[2021-06-16] MEDS: ZOLPIDEM TARTRATE 5 MG TABLET PO PRN (22:27)
[2021-06-16] MEDS: MELATONIN 5 MG TABLETS PO SCH (22:27)
[2021-06-17] MEDS: ACETAMINOPHEN 1000 MG/100 ML BAG IVPB PRN ×4 (00:48→18:18)
[2021-06-17] MEDS ORDERED: DEXTROSE 5%-WATER 100 ML IVPB ONE ×3 (00:51→16:52)
[2021-06-17] MEDS ORDERED: MEROPENEM 500 MG VIAL (RESTRICTED TO ID) IVPB ONE ×3 (00:51→16:51)
[2021-06-17] MEDS: LACTATED RINGERS SOLUTION 1,000 ML/1,000 ML INFUS.BAG IV SCH ×2 (01:08→21:56)
[2021-06-17] MEDS: MEROPENEM 500 MG in DEXTROSE 5%-WATER 100 ML IVPB SCH ×3 (02:28→17:16)
[2021-06-17] MEDS: GEMFIBROZIL 600 MG TABLET (FP) PO SCH ×2 (08:32→17:17)
[2021-06-17] MEDS: OMEGA-3 ACID ETHYL ESTERS (FATTY-ACIDS) 1 GM CAPSULE (FP) PO SCH ×2 (10:23→21:57)
[2021-06-17] MEDS: PANTOPRAZOLE 40 MG TABLET PO SCH ×2 (10:23→21:56)
[2021-06-17] MEDS: SERTRALINE HCL 25 MG TABLET (FP) PO SCH (10:23)
[2021-06-17] MEDS: LACTOBACILLUS ACIDOPHILUS 1 TABLET PO SCH (10:23)
[2021-06-17] MEDS: THIAMINE HCL 200 MG/2 ML VIAL IVPB SCH (10:24)
[2021-06-17] MEDS: ENOXAPARIN NA (PORCINE) 40 MG/0.4 ML DISP.SYRIN SQ SCH (10:25)
[2021-06-17 11:51] LABS: BASO % 0.8 % (0-2.0); EOS % 0.5 % (0-4.5); HEMATOCRIT 23.2 % (35.4-49); HEMOGLOBIN 7.7 GM/dL (11.7-16.9); LYMPH % 8.7 % (8-40); MCHC 32.9 g/dl (32.0-35.9); MEAN CELL VOLUME 100.3 fl (80-96); MEAN PLT VOLUME 8.7 fl (7.5-11.1); MONO % 6.9 % (3.8-10.2); NEUT % 83.1 % (42.8-82.8); PLATELET COUNT 411 10^3/uL (134-434); RBC 2.32 M/mm3 (4.00-5.60); RDW 13.3 % (11.9-15.9); WHITE BLOOD COUNT 15.3 K/mm3 (4.0-10.0)
[2021-06-17 12:05] LABS: INR 1.28 (0.83-1.09); PROTHROMBIN TIME (PATIENT) 14.8 SEC (9.7-13.0)
[2021-06-17 12:21] LABS: CALCIUM 8.7 mg/dL (8.5-10.1)
[2021-06-17 12:22] LABS: ALBUMIN 2.4 g/dl (3.4-5.0); BLOOD UREA NITROGEN 10.6 mg/dL (7-18)
[2021-06-17 12:25] LABS: CREATININE 1.2 mg/dL (0.55-1.3)
[2021-06-17 12:26] LABS: BILIRUBIN,TOTAL 0.7 mg/dL (0.2-1); TOT PROT 5.8 g/dl (6.4-8.2)
[2021-06-17] MEDS: traZODone HCL 50 MG TABLET (FP) PO SCH (21:57)
[2021-06-17] MEDS: MAG HYDROX/AL HYDROX/SIMETH 30 ML UNIT-DOSE CUP PO PRN (23:46)
[2021-06-18] MEDS: MELATONIN 5 MG TABLETS PO SCH ×2 (00:35→23:30)
[2021-06-18] MEDS: ZOLPIDEM TARTRATE 5 MG TABLET PO PRN ×2 (00:35→23:30)
[2021-06-18] MEDS: ACETAMINOPHEN 1000 MG/100 ML BAG IVPB PRN ×3 (00:36→12:48)
[2021-06-18] MEDS ORDERED: MEROPENEM 500 MG VIAL (RESTRICTED TO ID) IVPB ONE ×3 (00:55→16:39)
[2021-06-18] MEDS ORDERED: DEXTROSE 5%-WATER 100 ML IVPB ONE ×3 (00:55→16:39)
[2021-06-18] MEDS: MEROPENEM 500 MG in DEXTROSE 5%-WATER 100 ML IVPB SCH ×3 (01:26→17:40)
[2021-06-18] MEDS: GEMFIBROZIL 600 MG TABLET (FP) PO SCH ×2 (06:30→17:40)
[2021-06-18] MEDS ORDERED: LABETALOL HCL 200 MG TABLET (FP) PO ONE (06:42)
[2021-06-18 08:33] LABS: BASO % 0.6 % (0-2.0); EOS % 0.6 % (0-4.5); HEMATOCRIT 22.6 % (35.4-49); HEMOGLOBIN 7.4 GM/dL (11.7-16.9); LYMPH % 11.1 % (8-40); MCH 32.9 pg (25.7-33.7); MCHC 32.6 g/dl (32.0-35.9); MEAN PLT VOLUME 9.1 fl (7.5-11.1); MONO % 8.6 % (3.8-10.2); NEUT % 79.1 % (42.8-82.8); PLATELET COUNT 432 10^3/uL (134-434); RBC 2.24 M/mm3 (4.00-5.60); RDW 12.7 % (11.9-15.9); WHITE BLOOD COUNT 13.8 K/mm3 (4.0-10.0)
[2021-06-18] MEDS: ENOXAPARIN NA (PORCINE) 40 MG/0.4 ML DISP.SYRIN SQ SCH (10:04)
[2021-06-18] MEDS: OMEGA-3 ACID ETHYL ESTERS (FATTY-ACIDS) 1 GM CAPSULE (FP) PO SCH ×2 (10:04→21:55)
[2021-06-18] MEDS: THIAMINE HCL 200 MG/2 ML VIAL IVPB SCH (10:04)
[2021-06-18] MEDS: LACTOBACILLUS ACIDOPHILUS 1 TABLET PO SCH (10:05)
[2021-06-18] MEDS: PANTOPRAZOLE 40 MG TABLET PO SCH ×2 (10:05→21:55)
[2021-06-18] MEDS: SERTRALINE HCL 25 MG TABLET (FP) PO SCH (10:05)
[2021-06-18 10:47] LABS: CALCIUM 8.3 mg/dL (8.5-10.1)
[2021-06-18 10:48] LABS: ALBUMIN 2.3 g/dl (3.4-5.0); BLOOD UREA NITROGEN 9.9 mg/dL (7-18)
[2021-06-18 10:51] LABS: CREATININE 1.1 mg/dL (0.55-1.3)
[2021-06-18 10:52] LABS: BILIRUBIN,TOTAL 0.8 mg/dL (0.2-1); TOT PROT 5.7 g/dl (6.4-8.2)
[2021-06-18] MEDS: LACTATED RINGERS SOLUTION 1,000 ML/1,000 ML INFUS.BAG IV SCH (12:48)
[2021-06-18] MEDS: ACETAMINOPHEN 325 MG TABLET (FP) PO PRN (17:40)
[2021-06-18] MEDS: traZODone HCL 50 MG TABLET (FP) PO SCH (21:55)
[2021-06-18] MEDS ORDERED: ACETAMINOPHEN 1000 MG/100 ML BAG IVPB ONE (22:00)
[2021-06-19] MEDS ORDERED: MEROPENEM 500 MG VIAL (RESTRICTED TO ID) IVPB ONE ×2 (00:59→10:38)
[2021-06-19] MEDS ORDERED: DEXTROSE 5%-WATER 100 ML IVPB ONE ×2 (00:59→10:38)
[2021-06-19] MEDS: MEROPENEM 500 MG in DEXTROSE 5%-WATER 100 ML IVPB SCH ×2 (01:03→11:09)
[2021-06-19] MEDS: LACTATED RINGERS SOLUTION 1,000 ML/1,000 ML INFUS.BAG IV SCH ×2 (02:54→22:18)
[2021-06-19] MEDS: ACETAMINOPHEN 325 MG TABLET (FP) PO PRN ×3 (05:52→17:25)
[2021-06-19] MEDS: GEMFIBROZIL 600 MG TABLET (FP) PO SCH ×2 (06:35→17:18)
[2021-06-19 08:35] LABS: BASO % 0.9 % (0-2.0); EOS % 1.5 % (0-4.5); HEMATOCRIT 22.7 % (35.4-49); HEMOGLOBIN 7.7 GM/dL (11.7-16.9); LYMPH % 9.9 % (8-40); MCH 33.9 pg (25.7-33.7); MCHC 33.7 g/dl (32.0-35.9); MEAN CELL VOLUME 100.5 fl (80-96); MEAN PLT VOLUME 8.7 fl (7.5-11.1); MONO % 7.9 % (3.8-10.2); NEUT % 79.8 % (42.8-82.8); PLATELET COUNT 462 10^3/uL (134-434); RBC 2.26 M/mm3 (4.00-5.60); WHITE BLOOD COUNT 13.3 K/mm3 (4.0-10.0)
[2021-06-19 09:04] LABS: ALBUMIN 2.3 g/dl (3.4-5.0); CALCIUM 8.4 mg/dL (8.5-10.1)
[2021-06-19 09:05] LABS: BLOOD UREA NITROGEN 8.2 mg/dL (7-18)
[2021-06-19 09:09] LABS: BILIRUBIN,TOTAL 0.7 mg/dL (0.2-1)
[2021-06-19] MEDS: ENOXAPARIN NA (PORCINE) 40 MG/0.4 ML DISP.SYRIN SQ SCH (11:09)
[2021-06-19] MEDS: LACTOBACILLUS ACIDOPHILUS 1 TABLET PO SCH (11:10)
[2021-06-19] MEDS: OMEGA-3 ACID ETHYL ESTERS (FATTY-ACIDS) 1 GM CAPSULE (FP) PO SCH ×2 (11:10→22:17)
[2021-06-19] MEDS: SERTRALINE HCL 25 MG TABLET (FP) PO SCH (11:10)
[2021-06-19] MEDS: THIAMINE HCL 200 MG/2 ML VIAL IVPB SCH (12:12)
[2021-06-19] MEDS: PANTOPRAZOLE 40 MG TABLET PO SCH (12:17)
[2021-06-19] MEDS ORDERED: ALPRAZolam 0.25 MG TABLET PO ONE (19:26)
[2021-06-19] MEDS: MELATONIN 5 MG TABLETS PO SCH (22:15)
[2021-06-19] MEDS: traZODone HCL 50 MG TABLET (FP) PO SCH (22:16)
[2021-06-20] MEDS: ACETAMINOPHEN 325 MG TABLET (FP) PO PRN ×2 (02:02→09:01)
[2021-06-20] MEDS: LACTATED RINGERS SOLUTION 1,000 ML/1,000 ML INFUS.BAG IV SCH (02:15)
[2021-06-20] MEDS: GEMFIBROZIL 600 MG TABLET (FP) PO SCH (06:36)
[2021-06-20 08:26] LABS: BASO % 0.8 % (0-2.0); EOS % 1.7 % (0-4.5); HEMATOCRIT 26.6 % (35.4-49); HEMOGLOBIN 8.7 GM/dL (11.7-16.9); LYMPH % 11.8 % (8-40); MCH 32.8 pg (25.7-33.7); MCHC 32.8 g/dl (32.0-35.9); MEAN CELL VOLUME 100.1 fl (80-96); MEAN PLT VOLUME 8.7 fl (7.5-11.1); MONO % 6.5 % (3.8-10.2); NEUT % 79.2 % (42.8-82.8); PLATELET COUNT 542 10^3/uL (134-434); RBC 2.65 M/mm3 (4.00-5.60); RDW 12.7 % (11.9-15.9); WHITE BLOOD COUNT 14.3 K/mm3 (4.0-10.0)
[2021-06-20 08:40] LABS: CALCIUM 8.8 mg/dL (8.5-10.1)
[2021-06-20 08:41] LABS: ALBUMIN 2.7 g/dl (3.4-5.0); BLOOD UREA NITROGEN 7.4 mg/dL (7-18)
[2021-06-20 08:45] LABS: TOT PROT 6.9 g/dl (6.4-8.2)
[2021-06-20] MEDS: SERTRALINE HCL 25 MG TABLET (FP) PO SCH (09:00)
[2021-06-20] MEDS: LACTOBACILLUS ACIDOPHILUS 1 TABLET PO SCH (09:01)
[2021-06-20] MEDS: ENOXAPARIN NA (PORCINE) 40 MG/0.4 ML DISP.SYRIN SQ SCH (09:02)
[2021-06-20] MEDS: THIAMINE HCL 200 MG/2 ML VIAL IVPB SCH (09:02)
[2021-06-20] MEDS: OMEGA-3 ACID ETHYL ESTERS (FATTY-ACIDS) 1 GM CAPSULE (FP) PO SCH (09:05)
[2021-06-20] MEDS ORDERED: PANTOPRAZOLE 40 MG TABLET PO SCH (10:00)
[2021-06-20] MEDS ORDERED: amLODIPine BESYLATE 10 MG TABLET (FP) PO SCH (10:00)
[2021-06-20 10:54] VITALS: BP 155/70; PULSE 102; TEMP 98.1
[2021-06-20 15:11] LABS: ATYPICAL pANCA <1:20 titer (Neg:<1:20); C-ANCA <1:20 titer (Neg:<1:20)
== END 2021-06-20 14:17 | disposition home or self-care (01) | DRG 981 ==
LOC: FER 15:36 → JICU 06-06 00:20 → J7W 06-08 15:57
PROVIDERS: ADMIT Internal Medicine; ATTEND Internal Medicine
PROC: B31JZZZ Fluoroscopy of Left Upper Extremity Arteries (ICD-10-PCS; 2021-06-07)
PROC: 0RSKXZZ Reposition Left Shoulder Joint, External Approach (ICD-10-PCS; principal; 2021-06-07 15:00)
PROC: 0LS40ZZ Reposition Left Upper Arm Tendon, Open Approach (ICD-10-PCS; 2021-06-07 15:00)
DX: K85.20 Alcohol induced acute pancreatitis without necrosis or infection (principal); N17.0 Acute kidney failure with tubular necrosis; F10.239 Alcohol dependence with withdrawal, unspecified; E87.1 Hypo-osmolality and hyponatremia; J90 Pleural effusion, not elsewhere classified; J98.11 Atelectasis; R18.8 Other ascites; M62.82 Rhabdomyolysis; R56.9 Unspecified convulsions; D69.6 Thrombocytopenia, unspecified; M75.22 Bicipital tendinitis, left shoulder; D53.9 Nutritional anemia, unspecified; R74.01 Elevation of levels of liver transaminase levels; I10 Essential (primary) hypertension; S43.005A Unspecified dislocation of left shoulder joint, initial encounter; X58.XXXA Exposure to other specified factors, initial encounter; Y93.9 Activity, unspecified; Y92.89 Other specified places as the place of occurrence of the external cause; Y99.9 Unspecified external cause status; D72.829 Elevated white blood cell count, unspecified; F19.10 Other psychoactive substance abuse, uncomplicated; T14.8XXA Other injury of unspecified body region, initial encounter
CPT/HCPCS: 36415; 70450-TC; 71045-TC-FY; 71275-TC; 73030-TC-LT-FY; 73200-TC-RT; 74177-TC; 74178-TC; 76000-TC-FY; 76705-TC; 76775-TC; 76856-TC; 80048; 80053; 80061; 80076; 80307; 81003; 81015; 82140; 82150; 82247; 82248; 82272; 82390; 82436; 82525; 82550; 82553; 82570; 82607; 82728; 82746; 82787; 82803; 82962; 83010; 83036; 83516; 83520; 83540; 83550; 83605; 83615; 83690; 83735; 84100; 84133; 84155; 84156; 84165; 84300; 84478; 84484; 85025; 85045; 85379; 85610; 85730; 86038; 86140; 86160; 86162; 86225; 86256; 86704; 86709; 86803; 86850; 86900; 86901; 87040; 87045; 87046; 87086; 87177; 87205; 87209; 87324; 87340; 87389; 87426; 87449; 87517; 93005; 93010; 93970-TC; 94760; 97116-GP; 97162-GP; 99291; C9803-CS; J1100; Q9967; U0003; U0005